=== PATIENT | female | born 1970 | race Caucasian/White ===

== ENCOUNTER 2019-04-09 09:37 | Outpatient (CLI) | payer OTHER ==
[~2019-04-09 09:37] MED LIST: GADOBUTROL 7.5 MMOL/7.5 ML PFS ONE
[2019-04-09] MEDS ORDERED: FENTANYL PF 100 MCG/2ML ONE (10:34)
[2019-04-09] MEDS ORDERED: MIDAZOLAM 1 MG/ML, 5ML ONE ×2 (10:34)
[2019-04-09] MEDS ORDERED: NALOXONE 1 MG/ML, 2ML ONE (10:34)
[2019-04-09] MEDS ORDERED: FLUMAZENIL 0.1 MG/1 ML, 5ML ONE (10:34)
== END 2019-04-09 23:59 | disposition home or self-care (01) ==
LOC: RAD 09:37 → MERGE 09:37 → RAD 23:59
PROVIDERS: ATTEND Psychiatry & Neurology Neurology
DX: R90.82 White matter disease, unspecified (principal)
CPT/HCPCS: 70553; 99156; 99157; A9585; J2250; J3010; J2310